=== PATIENT | male | born 1965 | race Caucasian/White ===

== ENCOUNTER 2017-08-15 09:00 | Emergency (ER) | payer MEDICAID, OTHER, SELFPAY ==
[~2017-08-15] VITALS: Ht 177.8 cm; Wt 92.8 kg
[2017-08-15 09:01] VITALS: BP 141/92
== END 2017-08-15 10:30 | disposition home or self-care (01) ==
LOC: ED 10:24
DX: L73.9 Follicular disorder, unspecified (principal); I10 Essential (primary) hypertension; E11.9 Type 2 diabetes mellitus without complications
CPT/HCPCS: 99283

== ENCOUNTER 2017-08-20 17:04 | Emergency (ER) | payer OTHER ==
[~2017-08-20] VITALS: Ht 177.8 cm; Wt 92.4 kg
[2017-08-20 17:06] VITALS: BP 156/87
[2017-08-20] MEDS ORDERED: MUPIROCIN OINT 2%, 22GM TP ONE (17:42)
[2017-08-20] MEDS ORDERED: CEPHALEXIN 500 MG CAPSULE ONE (17:48)
[2017-08-20] MEDS ORDERED: CEPHALEXIN 500 MG CAPSULE PO ONE (18:00)
== END 2017-08-20 18:27 | disposition home or self-care (01) ==
LOC: ED 18:05
DX: E11.65 Type 2 diabetes mellitus with hyperglycemia (principal); L73.9 Follicular disorder, unspecified; I10 Essential (primary) hypertension; E78.5 Hyperlipidemia, unspecified
CPT/HCPCS: 82962; 99283

== ENCOUNTER 2017-10-21 18:05 | Emergency (ER) | payer MEDICAID ==
[~2017-10-21] VITALS: Ht 170.2 cm; Wt 90.0 kg
[2017-10-21 18:07] VITALS: BP 122/72
[2017-10-21] MEDS ORDERED: LISI2.5T PO (18:14)
[2017-10-21] MEDS ORDERED: ATOR-2 PO (18:14)
[2017-10-21] MEDS ORDERED: METF500T4 PO (18:14)
[2017-10-21] MEDS ORDERED: ASPI-515 PO (18:14)
== END 2017-10-21 20:05 | disposition home or self-care (01) ==
LOC: ED 19:40
DX: S61.212A Laceration without foreign body of right middle finger without damage to nail, initial encounter (principal); W45.8XXA Other foreign body or object entering through skin, initial encounter; Y93.G1 Activity, food preparation and clean up; Y92.009 Unspecified place in unspecified non-institutional (private) residence as the place of occurrence of the external cause; Y99.8 Other external cause status
CPT/HCPCS: 12041; 99284

== ENCOUNTER 2018-02-11 13:08 | Emergency (ER) | payer MEDICAID ==
[~2018-02-11] VITALS: Ht 177.8 cm; Wt 88.5 kg
[~2018-02-11 13:08] MED LIST: ASPI-515 PO; ATOR-2 PO; LISI2.5T PO; METF500T17 PO
[2018-02-11 13:51] LABS: BASOPHILS # (AUTO) 0.03 x10^3/uL (0-0.1); BASOPHILS % (AUTO) 1 % (0-1); EOSINOPHILS # (AUTO) 0.09 x10^3/uL (0-0.4); EOSINOPHILS % (AUTO) 1 % (1-7); LYMPHOCYTES # (AUTO) 1.19 x10^3/uL (1-3.4); LYMPHOCYTES % (AUTO) 19 % (22-44); MD NO; MEAN CORPUSCULAR HEMOGLOBIN 30.7 pg (27.5-34.5); MEAN CORPUSCULAR HGB CONC 33.5 g/dL (33.2-36.2); MEAN CORPUSCULAR VOLUME 91.6 fL (81-97); MEAN PLATELET VOLUME 9.2 fL (7.4-10.4); MONOCYTES # (AUTO) 0.32 x10^3/uL (0.2-0.8); MONOCYTES % (AUTO) 5 % (2-9); NEUTROPHILS # (AUTO) 4.71 x10^3/uL (1.8-6.8); NEUTROPHILS % (AUTO) 74 % (42-75); PLATELET COUNT 213 x10^3/uL (130-400); RED BLOOD COUNT 4.63 x10^6/uL (4.38-5.82); RED CELL DISTRIBUTION WIDTH 14.7 % (9.4-14.8)
[2018-02-11 14:02] LABS: ANION GAP 9 mmol/L (5-15); CALCIUM 8.5 mg/dL (8.5-10.1); CHLORIDE 109 mmol/L (98-107); CREATININE 0.91 mg/dL (0.7-1.3)
[2018-02-11 14:20] LABS: HEMOGLOBIN A1C 6.5 % (4.2-6.3)
[2018-02-11 15:00] VITALS: BP 114/71
== END 2018-02-11 15:18 | disposition home or self-care (01) ==
LOC: ED 15:12
DX: E11.65 Type 2 diabetes mellitus with hyperglycemia (principal); E78.5 Hyperlipidemia, unspecified; I10 Essential (primary) hypertension; F17.200 Nicotine dependence, unspecified, uncomplicated
CPT/HCPCS: 36415; 80048; 82962; 83036; 85025; 99284

== ENCOUNTER 2018-02-27 14:05 | Emergency (ER) | payer MEDICAID ==
[~2018-02-27] VITALS: Ht 177.8 cm; Wt 88.0 kg
[2018-02-27] MEDS ORDERED: ONDANSETRON 2MG/ML, 2ML IVPush ONE (14:30)
[2018-02-27] MEDS ORDERED: SODIUM CHLORIDE 0.9% 1,000ML IVBOLUS ONE (14:30)
[2018-02-27] MEDS ORDERED: SODIUM CHLORIDE FLUSH 10ML SYR IVF ONE (14:30)
[2018-02-27] MEDS ORDERED: MORPHINE SULFATE 4 MG/ML, 1ML IVPush PRN (14:30)
[2018-02-27] MEDS ORDERED: MORPHINE SULFATE 4 MG/ML, 1ML ONE (14:35)
[2018-02-27] MEDS ORDERED: ONDANSETRON ODT 4 MG ONE (14:35)
[2018-02-27 14:40] LABS: BASOPHILS # (AUTO) 0.03 x10^3/uL (0-0.1); BASOPHILS % (AUTO) 0 % (0-1); EOSINOPHILS # (AUTO) 0.09 x10^3/uL (0-0.4); EOSINOPHILS % (AUTO) 1 % (1-7); LYMPHOCYTES # (AUTO) 1.57 x10^3/uL (1-3.4); LYMPHOCYTES % (AUTO) 21 % (22-44); MD NO; MEAN CORPUSCULAR HEMOGLOBIN 30.3 pg (27.5-34.5); MEAN CORPUSCULAR HGB CONC 33.1 g/dL (33.2-36.2); MEAN CORPUSCULAR VOLUME 91.5 fL (81-97); MONOCYTES # (AUTO) 0.55 x10^3/uL (0.2-0.8); MONOCYTES % (AUTO) 7 % (2-9); NEUTROPHILS # (AUTO) 5.26 x10^3/uL (1.8-6.8); NEUTROPHILS % (AUTO) 70 % (42-75); PLATELET COUNT 236 x10^3/uL (130-400); RED BLOOD COUNT 5.06 x10^6/uL (4.38-5.82); RED CELL DISTRIBUTION WIDTH 14.6 % (9.4-14.8)
[2018-02-27 14:47] LABS: ALANINE AMINOTRANSFERASE 32 U/L (12-78); ALBUMIN 3.5 g/dL (3.4-5.0); ANION GAP 6 mmol/L (5-15); CALCIUM 8.8 mg/dL (8.5-10.1); CHLORIDE 103 mmol/L (98-107)
[2018-02-27 14:52] LABS: ALKALINE PHOSPHATASE 109 U/L (45-117); BILIRUBIN,TOTAL 0.6 mg/dL (0.2-1.0); CREATININE 1.25 mg/dL (0.7-1.3); TOTAL PROTEIN 7.1 g/dL (6.4-8.2); TROPONIN I < 0.015 ng/mL (0.000-0.045)
[2018-02-27] MEDS ORDERED: DEXAMETHASONE 4 MG TABLET PO ONE (15:30)
[2018-02-27 16:01] VITALS: BP 127/68
== END 2018-02-27 16:02 | disposition home or self-care (01) ==
LOC: ED 15:05
DX: J12.9 Viral pneumonia, unspecified (principal); E78.5 Hyperlipidemia, unspecified; I10 Essential (primary) hypertension; E11.9 Type 2 diabetes mellitus without complications
CPT/HCPCS: 36415; 71045; 80053; 84484; 85025; 93005; 96374; 96375; 99285; J2405; J7030

== ENCOUNTER 2018-07-13 08:06 | Inpatient (IN) | payer MEDICAID ==
[~2018-07-13] VITALS: Ht 177.8 cm; Wt 91.4 kg
[2018-07-13] MEDS ORDERED: SODIUM CHLORIDE FLUSH 10ML SYR IVF ONE (08:30)
[2018-07-13 08:48] LABS: BASOPHILS # (AUTO) 0.04 x10^3/uL (0-0.1); BASOPHILS % (AUTO) 1 % (0-1); EOSINOPHILS # (AUTO) 0.06 x10^3/uL (0-0.4); EOSINOPHILS % (AUTO) 1 % (1-7); LYMPHOCYTES # (AUTO) 1.76 x10^3/uL (1-3.4); LYMPHOCYTES % (AUTO) 23 % (22-44); MD NO; MEAN CORPUSCULAR HEMOGLOBIN 30.2 pg (27.5-34.5); MEAN CORPUSCULAR HGB CONC 33.2 g/dL (33.2-36.2); MEAN CORPUSCULAR VOLUME 91.1 fL (81-97); MEAN PLATELET VOLUME 8.6 fL (7.4-10.4); MONOCYTES # (AUTO) 0.53 x10^3/uL (0.2-0.8); MONOCYTES % (AUTO) 7 % (2-9); NEUTROPHILS # (AUTO) 5.44 x10^3/uL (1.8-6.8); NEUTROPHILS % (AUTO) 70 % (42-75); PLATELET COUNT 223 x10^3/uL (130-400); RED BLOOD COUNT 4.84 x10^6/uL (4.38-5.82); RED CELL DISTRIBUTION WIDTH 13.6 % (9.4-14.8)
[2018-07-13 08:58] LABS: ALBUMIN 3.8 g/dL (3.4-5.0); ANION GAP 5 mmol/L (5-15); CALCIUM 8.2 mg/dL (8.5-10.1); CHLORIDE 110 mmol/L (98-107); CREATININE 0.82 mg/dL (0.7-1.3)
--- NOTE | 2018-07-13 09:05 | NUR ---
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
--- NOTE | 2018-07-13 09:15 | NUR ---
FIRST CONTACT WITH PT. PT STATES HE'S ANGRY, "NOBODY HAS TOLD ME WHAT'S GOING ON", "I'M IN PAIN". PT UPDATED ON POC, WARM BLANKET PROVIDED, CALL LIGHT WITHIN REACH. REQUEST FOR PAIN MEDICATION RELAYED TO ERP. ERP IN TO SEE PT.
[2018-07-13] MEDS ORDERED: [UNRECOGNIZED DRUG - OTHER] PO (09:43)
[2018-07-13] MEDS ORDERED: ONDANSETRON 2MG/ML, 2ML ONE (09:44)
[2018-07-13] MEDS ORDERED: MORPHINE SULFATE 4 MG/ML, 1ML ONE (09:44)
--- NOTE | 2018-07-13 09:56 | NUR ---
IV PLACED, MED GIVEN PER ERP ORDER FOR PAIN TO EARS AND HEAD RATED 8/10. MED REQUEST FOR ANTIBIOTIC SENT TO PHARMACY. PT UPDATED ON POC. MED REC COMPLETED. CALL LIGHT WITHIN REACH. VS UPDATED IN COMPUTER.
[2018-07-13] MEDS ORDERED: ONDANSETRON 2MG/ML, 2ML IVPush ONE (10:00)
[2018-07-13] MEDS ORDERED: VANCOMYCIN PER PHARMACY MC PRN (10:00)
[2018-07-13] MEDS ORDERED: AMPICILLIN/SULBACTAM 3 GM in SODIUM CHLORIDE 0.9% 100 ML IV ONE (10:00)
[2018-07-13] MEDS ORDERED: PHARMACOKINETIC CONSULTATION MC ONE (10:00)
[2018-07-13] MEDS ORDERED: VANCOMYCIN 1,800 MG in SODIUM CHLORIDE 0.9% 250 ML IV ONE (10:00)
[2018-07-13] MEDS ORDERED: MORPHINE SULFATE 4 MG/ML, 1ML IVPush PRN (10:00)
--- NOTE | 2018-07-13 10:09 | NUR ---
[facility] by [facility] (Jose) & [facility] (Smita).
--- NOTE | 2018-07-13 10:35 | NUR ---
ATTEMPT TO CALL REPORT.
[2018-07-13] MEDS ORDERED: CIPROFLOXACIN DEXAMETHASONE EAR SUSP 7.5ML EACH EAR ONE (11:00)
[2018-07-13] MEDS ORDERED: ONDANSETRON ODT 4 MG PO PRN (11:00)
[2018-07-13] MEDS ORDERED: ONDANSETRON 2MG/ML, 2ML IVPush PRN (11:00)
[2018-07-13] MEDS: HEPARIN 5,000 UNITS/ML, 1ML SQ SCH ×2 (11:00→18:21)
[2018-07-13] MEDS: INSULIN LISPRO 100 UNITS/ML, PEN SQ-INSULIN SCH ×3 (11:00→21:00)
[2018-07-13] MEDS ORDERED: ACETAMINOPHEN 325 MG TABLET PO PRN (11:00)
--- NOTE | 2018-07-13 11:05 | NUR ---
REPORT ATTEMPT X 3 TO MEDICAL.
--- NOTE | 2018-07-13 11:17 | NUR ---
REPORT TO LUKE NAYAK. PT READY FOR TRANSPORT. Addendum: 07/13/18 at 1135 by DOROTHY LUKE NAYAK INFORMED OF NO ANTIBIOTIC MEDS RECEIVED FROM PHARMACY AT TIME OF TRANSFER. MEDS TO BE GIVEN ON FLOOR.
[2018-07-13 12:00] VITALS: BP 137/73
[2018-07-13] MEDS: KETOROLAC 30 MG/1 ML IV PRN ×3 (12:18→23:49)
[2018-07-13] MEDS: AMPICILLIN/SULBACTAM 3 GM in SODIUM CHLORIDE 0.9% 100 ML IV SCH ×3 (12:18→23:49)
[2018-07-13] MEDS: SODIUM CHLORIDE 0.9% 1,000 ML IV SCH (12:19)
[2018-07-13] MEDS: CIPROFLOXACIN/HYDROCORTISONE EAR SUSP 0.2-1%, 10ML RIGHT EAR SCH ×2 (12:19→23:49)
[2018-07-13 12:30] LABS: HEMOGLOBIN A1C 6.1 % (4.2-6.3)
[2018-07-13 14:37] VITALS: BP 137/73
[2018-07-13 19:14] VITALS: BP 120/75
[2018-07-13] MEDS ORDERED: LINA5TAB PO (22:12)
[2018-07-13] MEDS: metFORMIN 500 MG TABLET PO SCH (22:25)
[2018-07-14] MEDS: HEPARIN 5,000 UNITS/ML, 1ML SQ SCH ×3 (00:09→20:13)
[2018-07-14 02:10] VITALS: BP 122/67
[2018-07-14] MEDS: AMPICILLIN/SULBACTAM 3 GM in SODIUM CHLORIDE 0.9% 100 ML IV SCH (06:02)
[2018-07-14] MEDS: KETOROLAC 30 MG/1 ML IV PRN ×3 (06:02→17:38)
[2018-07-14 06:22] LABS: ANION GAP 4 mmol/L (5-15); CALCIUM 7.6 mg/dL (8.5-10.1); CHLORIDE 115 mmol/L (98-107)
[2018-07-14 06:23] LABS: BASOPHILS # (AUTO) 0.03 x10^3/uL (0-0.1); BASOPHILS % (AUTO) 1 % (0-1); EOSINOPHILS # (AUTO) 0.08 x10^3/uL (0-0.4); EOSINOPHILS % (AUTO) 2 % (1-7); LYMPHOCYTES # (AUTO) 1.69 x10^3/uL (1-3.4); LYMPHOCYTES % (AUTO) 39 % (22-44); MD NO; MEAN CORPUSCULAR HEMOGLOBIN 30.5 pg (27.5-34.5); MEAN CORPUSCULAR HGB CONC 33.3 g/dL (33.2-36.2); MEAN CORPUSCULAR VOLUME 91.3 fL (81-97); MEAN PLATELET VOLUME 8.9 fL (7.4-10.4); MONOCYTES % (AUTO) 9 % (2-9); NEUTROPHILS # (AUTO) 2.12 x10^3/uL (1.8-6.8); NEUTROPHILS % (AUTO) 49 % (42-75); PLATELET COUNT 199 x10^3/uL (130-400); RED BLOOD COUNT 4.32 x10^6/uL (4.38-5.82); RED CELL DISTRIBUTION WIDTH 13.6 % (9.4-14.8)
[2018-07-14 06:25] LABS: CREATININE 0.83 mg/dL (0.7-1.3)
[2018-07-14] MEDS: INSULIN LISPRO 100 UNITS/ML, PEN SQ-INSULIN SCH ×4 (07:00→20:13)
[2018-07-14 07:38] VITALS: BP 119/65
[2018-07-14] MEDS ORDERED: VANCOMYCIN PER PHARMACY MC PRN (08:00)
[2018-07-14] MEDS ORDERED: PHARMACOKINETIC MONITORING MC PRN (08:30)
[2018-07-14] MEDS: PIPERACILLIN/TAZO/PMX 4.5GM 100 ML IV SCH ×2 (08:57→17:39)
[2018-07-14] MEDS: ASPIRIN 81 MG TABLET EC PO SCH (08:58)
[2018-07-14] MEDS: LINAGLIPTIN 5 MG TAB PO SCH (08:58)
[2018-07-14] MEDS: metFORMIN 500 MG TABLET PO SCH ×2 (08:58→20:17)
[2018-07-14] MEDS: LISINOPRIL 10 MG TABLET PO SCH (08:58)
[2018-07-14] MEDS: ATORVASTATIN 40 MG TABLET PO SCH ×2 (10:08→20:13)
[2018-07-14] MEDS: VANCOMYCIN 1,800 MG in SODIUM CHLORIDE 0.9% 250 ML IV SCH ×2 (10:43→22:28)
[2018-07-14 13:14] VITALS: BP 109/72
[2018-07-14] MEDS: CIPROFLOXACIN/HYDROCORTISONE EAR SUSP 0.2-1%, 10ML RIGHT EAR SCH (14:33)
[2018-07-14] MEDS: SODIUM CHLORIDE 0.9% 1,000 ML IV SCH (17:39)
[2018-07-14 18:32] VITALS: BP 113/72
[2018-07-14] MEDS ORDERED: DIPHENHYDRAMINE 50 MG CAPSULE PO PRN (21:30)
[2018-07-14] MEDS ORDERED: GABAPENTIN 300 MG CAPSULE PO PRN (21:30)
[2018-07-15] MEDS: PIPERACILLIN/TAZO/PMX 4.5GM 100 ML IV SCH ×2 (00:06→08:29)
[2018-07-15] MEDS: CIPROFLOXACIN/HYDROCORTISONE EAR SUSP 0.2-1%, 10ML RIGHT EAR SCH ×2 (00:06→12:43)
[2018-07-15] MEDS: KETOROLAC 30 MG/1 ML IV PRN ×3 (00:12→13:53)
[2018-07-15 00:30] VITALS: BP 110/74
[2018-07-15] MEDS: HEPARIN 5,000 UNITS/ML, 1ML SQ SCH ×2 (04:55→12:43)
[2018-07-15] MEDS: INSULIN LISPRO 100 UNITS/ML, PEN SQ-INSULIN SCH ×2 (07:00→11:00)
[2018-07-15 07:13] VITALS: BP 118/74
[2018-07-15] MEDS: SODIUM CHLORIDE 0.9% 1,000 ML IV SCH (08:29)
[2018-07-15] MEDS: metFORMIN 500 MG TABLET PO SCH (08:30)
[2018-07-15] MEDS: ASPIRIN 81 MG TABLET EC PO SCH (08:30)
[2018-07-15] MEDS: LISINOPRIL 10 MG TABLET PO SCH (08:30)
[2018-07-15] MEDS: LINAGLIPTIN 5 MG TAB PO SCH (08:30)
[2018-07-15] MEDS ORDERED: LORazepam 2 MG/ML, 1ML IVPush PRN (09:00)
[2018-07-15] MEDS ORDERED: ACET325T14 PO (11:01)
[2018-07-15] MEDS ORDERED: IBUP100T7 PO (11:01)
[2018-07-15] MEDS ORDERED: AMOX1TAB64 PO (12:17)
[2018-07-15] MEDS: VANCOMYCIN 1,800 MG in SODIUM CHLORIDE 0.9% 250 ML IV SCH (12:42)
[2018-07-15] MEDS: ATORVASTATIN 40 MG TABLET PO SCH (12:42)
[2018-07-15 12:53] VITALS: BP 141/78
== END 2018-07-15 15:30 | disposition home or self-care (01) | DRG 158 ==
LOC: ED 09:31 → EDIP 09:59 → 3NE 11:40 → DCLOUNGE 07-15 15:20
PROVIDERS: ADMIT Internal Medicine; ATTEND Internal Medicine
DX: M26.69 Other specified disorders of temporomandibular joint (principal); H70.001 Acute mastoiditis without complications, right ear; H92.01 Otalgia, right ear; E11.9 Type 2 diabetes mellitus without complications; E78.5 Hyperlipidemia, unspecified; H66.91 Otitis media, unspecified, right ear; H91.91 Unspecified hearing loss, right ear; Y83.8 Other surgical procedures as the cause of abnormal reaction of the patient, or of later complication, without mention of misadventure at the time of the procedure; G43.909 Migraine, unspecified, not intractable, without status migrainosus; I10 Essential (primary) hypertension; Z59.0 Homelessness; Z80.3 Family history of malignant neoplasm of breast; Z82.49 Family history of ischemic heart disease and other diseases of the circulatory system; Z83.3 Family history of diabetes mellitus; Y92.89 Other specified places as the place of occurrence of the external cause
CPT/HCPCS: 36415; 70480; 70551; 70552; 80048; 82040; 82962; 83036; 85025; 96374; 96375; G0378; J0295; J1885; J2405; J2543; J3370; J2060; J7030; J7050